=== PATIENT | female | born 1940 | race Caucasian/White ===

== ENCOUNTER 2020-01-19 09:55 | Outpatient (CLI) | payer MEDICARE, OTHER, SELFPAY ==
[2020-01-19 10:19] LABS: Basophils # 0.2 10^3/uL (0.0-0.1); Basophils % 1.6 %; Eosinophils # 0.2 10^3/uL (0.0-0.8); Hematocrit 41.8 % (37.0-47.0); Hemoglobin 12.8 g/dL (11.5-15.3); Lymphocytes # 2.3 10^3/uL (0.8-4.8); Lymphocytes % 23.2 %; Mean Corpuscular HGB Conc 30.6 g/dL (30.0-36.0); Mean Corpuscular Hemoglobin 31.5 pg (28.0-34.0); Mean Platelet Volume 11.1 fL (7.4-10.4); Monocytes # 0.7 10^3/uL (0.2-0.9); Monocytes % 7.2 %; Neutrophils # 6.4 10^3/uL (1.8-7.7); Nucleated Red Blood Cells % 0 %; Platelet Count 621 10^3/cmm (130-400); Red Blood Count 4.06 10^6/uL (4.1-5.3); Red Cell Distribution Width 13.6 % (12.1-15.1); White Blood Count 9.8 10^3/uL (4.0-10.0)
[2020-01-19 10:40] LABS: Alanine Aminotransferase 23 U/L (0-33); Albumin Level 4.5 g/dL (3.5-5.2); Alkaline Phosphatase 51 IU/L (35-105); Anion Gap 15.9 (5-19); Aspartate Amino Transferase 29 U/L (0-32); Blood Urea Nitrogen 17 mg/dL (8-23); Carbon Dioxide 27 mmol/L (22-29); Chloride 100 mmol/L (98-107); Globulin 2.7 g/dL (1.3-4.6); Glucose 128 mg/dL (65-115); Lactate Dehydrogenase 258 U/L (135-214); Osmolality Calculated 286 mOsm/kg (285-295); Potassium 3.9 mmol/L (3.5-5.1); Sodium 139 mmol/L (136-145); Total Bilirubin 0.4 mg/dL (0.15-1.2); Total Protein 7.2 g/dL (6.6-8.7)
--- NOTE | 2020-01-22 10:17 | ONC FU_ITS ---
Dr. Frost Patient Follow-Up Note Patient: Nhi Handley Unit #: [id number]: 1940 Dicatated By: Irving Frost M.D.Date of Visit:Jan 19, 2020 Onc Med Follow-up/Prog Note Chief Complaint: Thrombocythemia. History of Present Illness: This is a 79 year-old woman with essential thrombocythemia. The thrombocythemia was initially diagnosed in September 2004. She had previously been treated with hydroxyurea, and she was doing very well with it. However, I did opt to have her stop treatment in June of 2011 as there was increasing evidence that treatment was unnecessary in the majority of these patients. Since stopping treatment, her platelet count initially stabilized in the range of 900,000, which she tolerated very well. In January 2014 she had developed melanotic stools which were confirmed to be heme-positive. She was mildly anemic at that time. She had been taking Aleve, and it was discontinued along with her aspirin. She otherwise was just treated empirically with ranitidine and an oral iron supplement. Her hemoglobin/hematocrit levels subsequently normalized and, interestingly, her platelet count came down somewhat. She did develop significant erythromelalgia symptoms, but those did resolve when she resumed low-dose aspirin therapy. She has otherwise just continued observation/expectant management for the thrombocythemia. Her other medical illnesses include hypertension, hyperlipidemia, degenerative arthritis, and osteoporosis. During followup she developed symptoms of asthma, and she is under the care of a wire tinner. She is a nonsmoker. INTERIM HISTORY: She is seen for a scheduled visit. She has been feeling good generally. She has good energy, and she has had normal activity. ECOG score is 0. Her appetite is good. She has no fever or night sweats. She does have some sinus drainage with occasional cough. She does not complain of shortness of breath or chest pain. She has no GI or complaints. She currently is not having any significant joint or bone pain. She does not have headache or dizziness, and she has no focal neurologic symptoms. Medications: ALPRAZolam 0.5 (0.25 mg) Tablet Oral daily PRN, Aspirin 1 Tablet (of 81 mg) Tablet, chewable Oral daily, Flonase Suspension Nasal PRN, Montelukast Sodium 1 Tablet (of 10 mg) Oral daily PRN, Multiple Vitamin Take 1 Tablet Oral daily, Naproxen Sodium 1 Tablet (of 220 mg) Oral PRN Allergies: No Known Allergies. Review of Systems: Constitutional - Her energy has been good. She has normal activity at home. Her appetite is good and weight is down about 5 pounds from last visit. No fever, chills, hot flashes, or night sweats. ECOG score is 0, ENMT - She has some sinus drainage. No mouth sores. No sore throat or difficulty swallowing, Hematologic/Lymphatic - No abnormal bruising or bleeding, Respiratory - No shortness of breath. She has an occasional cough. No pleuritic pain or hemoptysis, Cardiovascular - No angina pain. No palpitations, Gastrointestinal - No nausea or vomiting. No heartburn or acid reflux. No diarrhea or constipation. No blood in the stool or black stools, Genitourinary (F) - No dysuria or hematuria. No urinary frequency. No urgency or incontinence, Musculoskeletal - No joint or bone pain, Integumentary - No skin complications, Neurologic - No headache or dizziness. No numbness/paresthesias or other focal neurologic symptoms, Psychiatric - She has had some anxiety, but that has been pretty good lately. No depression. No insomnia. Vital Signs: Performed on Jan 19, 2020 11:30 Height - 60.00 in Weight - 139.8 lbs (LOW) BSA - 1.60 sq.m BMI - 27.30 Temperature - 97.2 F (LOW) Pulse - 79 /min Respiration - 22 /min BP - 183/78 mm(hg) (HIGH) O2 Sat - 98 % Pain - 0 Physical Examination: Constitutional - She looks good generally, Eyes - Sclerae nonicteric. Conjunctivae clear, ENMT - No lesions noted in the oral cavity, Hematologic/Lymphatic - No cervical, clavicular, or axillary adenopathy, Respiratory - Lungs sound clear, Cardiovascular - Heart rhythm is regular. There is a II/ systolic murmur. There is no gallop or rub noted, Abdomen - Soft. Liver and spleen are not enlarged. There is no abdominal mass or ascites noted and there is no inguinal adenopathy, Extremities - Slight edema, Neurologic - No focal neurologic deficits noted. Lab/Imaging: Test performed on Jan 19, 2020 10:08 LDH (Total) 258 U/L Sodium 139 mmol/L Potassium 3.9 mmol/L Chloride 100 mmol/L CO2 27 mmol/L Anion Gap 15.9 BUN 17 mg/dL Creatinine 0.7 mg/dL Cr Clearance (Est) 65.24 mL/min Glucose 128 mg/dL Calcium 10.0 mg/dL Protein, Total 7.2 g/dL Albumin 4.5 g/dL Globulin 2.7 g/dL Bilirubin, Total 0.4 mg/dL ALT (SGPT) 23 U/L AST (SGOT) 29 U/L Alkaline Phosphatase 51 IU/L WBC 9.8 10 3/uL RBC 4.06 10 6/uL HGB 12.8 g/dL HCT 41.8 % MCV 103.0 fL MCH 31.5 pg MCHC 30.6 g/dL RDW 13.6 % Platelet Count 621 10 3/cmm MPV 11.1 fL Neutrophils 6.4 10 3/uL Lymphocytes 2.3 10 3/uL Monocytes 0.7 10 3/uL Eosinophils 0.2 10 3/uL Basophils 0.2 10 3/uL Neutrophil % 65.0 % Lymphocyte % 23.2 % Monocyte % 7.2 % Eosinophil % 2.0 % Basophils % 1.6 % Impression: 1. Patient with essential thrombocythemia, initially diagnosed in September 2004. She was previously treated with hydroxyurea, but I did opt to have her stop it in June 2011. 2. She had subsequently been doing well on just aspirin prophylaxis. 3. She had an episode of upper GI bleeding in January 2014. This was presumed to be NSAID related. She recovered on empiric treatment with ranitidine and iron supplementation, though at the time she also stopped Aleve and aspirin. 4. She subsequently developed symptoms of erythromelalgia, but those symptoms improved after restarting aspirin. 5. Her platelet count has subsequently stabilized in the range of 600-700,000. She has tolerated it well. Her other medical illnesses include: 6. Hypertension. 7. Hyperlipidemia. 8. Osteoporosis. 9. Degenerative arthritis. 10. Chronic anxiety. During follow-up she has a mild to moderately elevated platelet count, which she has tolerated well. Overall, she has been doing very well clinically. Plan: She will continue aspirin prophylaxis at 81 mg daily, but she otherwise remains on observation for the thrombocythemia. She continues alprazolam as needed for anxiety. I will see her again in 6 months. Signed By: Irving Frost M.D. <<Signature on File>>
== END 2020-01-19 09:56 | disposition home or self-care (01) ==
LOC: ONCMED 09:59
PROVIDERS: Family Provider Internal Medicine; PCP Internal Medicine; Visit Provider Internal Medicine Medical Oncology
DX: Z09 Encounter for follow-up examination after completed treatment for conditions other than malignant neoplasm (principal); D47.3 Essential (hemorrhagic) thrombocythemia; I10 Essential (primary) hypertension; E78.5 Hyperlipidemia, unspecified; M19.90 Unspecified osteoarthritis, unspecified site; M81.0 Age-related osteoporosis without current pathological fracture; J45.909 Unspecified asthma, uncomplicated; Z79.82 Long term (current) use of aspirin; Z79.899 Other long term (current) drug therapy
CPT/HCPCS: 36415; 80053; 83615; 85025; G0463

== ENCOUNTER → 2020-04-18 14:14 | Outpatient (BNVA) | payer MEDICARE, OTHER, SELFPAY | PROVIDERS: Family Provider Internal Medicine; PCP Internal Medicine; Visit Provider Podiatrist Foot & Ankle Surgery | DX: M79.671 Pain in right foot (principal); M79.672 Pain in left foot; M25.572 Pain in left ankle and joints of left foot; G89.29 Other chronic pain | CPT/HCPCS: 73630 ==

== ENCOUNTER 2020-05-11 08:17 | Outpatient (CLI) | payer MEDICARE, OTHER, SELFPAY ==
--- NOTE | 2020-05-11 08:35 | MM_ITS ---
WS: [id number] BILATERAL DIGITAL SCREENING MAMMOGRAPHY WITH CAD CLINICAL INFORMATION: SCREENING HISTORY: Screening mammogram. No current complaints. COMPARISON: April 13, 2019 TECHNIQUE: Bilateral CC and MLO views. FINDINGS: Scattered fibroglandular densities bilaterally. No suspicious focal mass, asymmetry, calcifications, or architectural distortion. No evidence of malignancy. Lucent centered calcification left breast. MM/[id number] IMPRESSION: BI-RADS: 2-Benign FOLLOW UP: 1 Year Follow-up Recommend return to annual screening mammography.
== END 2020-05-11 08:18 | disposition home or self-care (01) ==
LOC: RADSHAW 08:22
PROVIDERS: PCP Internal Medicine; Visit Provider Internal Medicine
DX: Z12.31 Encounter for screening mammogram for malignant neoplasm of breast (principal)
CPT/HCPCS: 77067

== ENCOUNTER → 2020-05-15 08:53 | Outpatient (BNVA) | payer MEDICARE, OTHER, SELFPAY | PROVIDERS: PCP Internal Medicine; Visit Provider Dermatology | DX: Z85.828 Personal history of other malignant neoplasm of skin (principal); Z85.89 Personal history of malignant neoplasm of other organs and systems; Z12.83 Encounter for screening for malignant neoplasm of skin; L82.1 Other seborrheic keratosis; D36.10 Benign neoplasm of peripheral nerves and autonomic nervous system, unspecified; B07.9 Viral wart, unspecified | CPT/HCPCS: 17000; 99203 ==

== ENCOUNTER 2020-07-19 11:23 | Outpatient (CLI) | payer MEDICARE, OTHER, SELFPAY ==
[2020-07-19 12:10] LABS: Basophils # 0.2 10^3/uL (0.0-0.1); Basophils % 1.8 %; Eosinophils # 0.3 10^3/uL (0.0-0.8); Eosinophils % 2.7 %; Hematocrit 42.4 % (37.0-47.0); Hemoglobin 13.4 g/dL (11.5-15.3); Lymphocytes # 2.4 10^3/uL (0.8-4.8); Lymphocytes % 22.6 %; Mean Corpuscular HGB Conc 31.6 g/dL (30.0-36.0); Mean Corpuscular Hemoglobin 31.5 pg (28.0-34.0); Mean Corpuscular Volume 99.8 fL (81-99); Monocytes # 0.7 10^3/uL (0.2-0.9); Monocytes % 7.1 %; Neutrophils # 6.76 10^3/uL (1.8-7.7); Neutrophils % 64.6 %; Nucleated Red Blood Cells % 0 %; Platelet Count 694 10^3/cmm (130-400); Red Blood Count 4.25 10^6/uL (4.1-5.3); Red Cell Distribution Width 13.3 % (12.1-15.1); White Blood Count 10.5 10^3/uL (4.0-10.0)
[2020-07-19 12:36] LABS: Alanine Aminotransferase 21 U/L (0-33); Albumin Level 4.3 g/dL (3.5-5.2); Alkaline Phosphatase 48 IU/L (35-105); Anion Gap 16.4 (5-19); Aspartate Amino Transferase 29 U/L (0-32); Blood Urea Nitrogen 17 mg/dL (8-23); Calcium 9.5 mg/dL (8.5-10.5); Carbon Dioxide 27 mmol/L (22-29); Chloride 100 mmol/L (98-107); Glucose 105 mg/dL (65-115); Lactate Dehydrogenase 299 U/L (135-214); Osmolality Calculated 290 mOsm/kg (285-295); Potassium 4.4 mmol/L (3.5-5.1); Sodium 139 mmol/L (136-145); Total Bilirubin 0.3 mg/dL (0.15-1.2); Total Protein 7.3 g/dL (6.6-8.7)
--- NOTE | 2020-07-22 13:45 | ONC FU_ITS ---
Dr. Frost Patient Follow-Up Note Patient: Nhi Handley Unit #: [id number]: [id number] Dicatated By: Irving Frost M.D.Date of Visit:Jul 19, 2020 Onc Med Follow-up/Prog Note Chief Complaint: Thrombocythemia. History of Present Illness: This is a 79 year-old woman with essential thrombocythemia. The thrombocythemia was initially diagnosed in September 2004. She had previously been treated with hydroxyurea, and she was doing very well with it. However, I did opt to have her stop treatment in June of 2011 as there was increasing evidence that treatment was unnecessary in the majority of these patients. Since stopping treatment, her platelet count initially stabilized in the range of 900,000, which she tolerated very well. In January 2014 she had developed melanotic stools which were confirmed to be heme-positive. She was mildly anemic at that time. She had been taking Aleve, and it was discontinued along with her aspirin. She otherwise was just treated empirically with ranitidine and an oral iron supplement. Her hemoglobin/hematocrit levels subsequently normalized and, interestingly, her platelet count came down somewhat. She did develop significant erythromelalgia symptoms, but those did resolve when she resumed low-dose aspirin therapy. She has otherwise just continued observation/expectant management for the thrombocythemia. Her other medical illnesses include hypertension, hyperlipidemia, degenerative arthritis, and osteoporosis. During followup she developed symptoms of asthma, and she is under the care of a buffing turner and counter. She is a nonsmoker. INTERIM HISTORY: She is seen for a scheduled visit. She has been feeling pretty good generally. Her energy has been okay, but she does have limited activity. ECOG score is 1. She has good appetite. She has no fever or night sweats. She always has sinus drainage. She currently is not having shortness of breath and she does not complain of cough. She has not had chest pain. She has no GI or complaints. She has been having pain in her left ankle and foot, reportedly due to a bone spur. She otherwise has some mild generalized joint pain. She does not complain of headache or dizziness. She has no focal neurologic symptoms. She does have anxiety at times, but she manages it very well taking alprazolam on an occasional basis. Medications: ALPRAZolam 0.5 (0.25 mg) Tablet Oral daily PRN, Aspirin 1 Tablet (of 81 mg) Tablet, chewable Oral daily, Flonase Suspension Nasal PRN, Lipitor 1 Tablet (of 10 mg) Oral on Every Other Day, Multiple Vitamin Take 1 Tablet Oral daily, Naproxen Sodium 1 Tablet (of 220 mg) Oral PRN Allergies: penicillin Review of Systems: Constitutional - Her energy is OK, but she does have somewhat limited activity. Appetite is good and weight is stable. No fever, night sweats, or hot flashes. ECOG score is 1, ENMT - She always has sinus drainage. No mouth sores. No sore throat or difficulty swallowing, Hematologic/Lymphatic - No abnormal bruising or bleeding, Respiratory - No shortness of breath. No cough. No pleuritic pain or hemoptysis, Cardiovascular - No angina pain. No palpitations, Gastrointestinal - No nausea or vomiting. No heartburn or acid reflux. No diarrhea or constipation. No blood in the stool or black stools, Genitourinary (F) - No dysuria or hematuria. No urinary frequency. No urgency or incontinence, Musculoskeletal - She has been having pain in her left ankle and foot, apparently due to bone spur. She otherwise has some mild generalized joint pain, Integumentary - No skin rash, Neurologic - No headache or dizziness. No numbness or tingling. No other focal neurologic symptoms, Psychiatric - She has some anxiety at times. She manages very well taking alprazolam on an occasional basis. No depression. No insomnia. Vital Signs: Performed on Jul 19, 2020 12:56 Height - 60.00 in Weight - 137.0 lbs (LOW) BSA - 1.59 sq.m BMI - 26.76 Temperature - 97.6 F (LOW) Pulse - 56 /min (LOW) Respiration - 18 /min BP - 136/72 mm(hg) O2 Sat - 98 % Pain - 0 Physical Examination: Constitutional - She looks good generally, Eyes - Sclerae nonicteric. Conjunctivae clear, ENMT - No lesions noted in the oral cavity, Hematologic/Lymphatic - No cervical, clavicular, or axillary adenopathy, Respiratory - Lungs sound clear with slightly diminished breath sounds bilaterally, Cardiovascular - Heart rhythm is regular. There is a II/ systolic murmur. There is no gallop or rub noted, Abdomen - Soft. Liver and spleen are not enlarged. There is no abdominal mass or ascites noted and there is no inguinal adenopathy, Extremities - No edema. Dorsalis pedis pulses are palpable bilaterally, Neurologic - No focal neurologic deficits noted. Lab/Imaging: Test performed on Jul 19, 2020 11:34 LDH (Total) 299 U/L Sodium 139 mmol/L Potassium 4.4 mmol/L Chloride 100 mmol/L CO2 27 mmol/L Anion Gap 16.4 BUN 17 mg/dL Creatinine 0.7 mg/dL Cr Clearance (Est) 63.93 mL/min Glucose 105 mg/dL Osmolality - Calculated 290 mOsm/kg Calcium 9.5 mg/dL Protein, Total 7.3 g/dL Albumin 4.3 g/dL Globulin 3.0 g/dL Bilirubin, Total 0.3 mg/dL ALT (SGPT) 21 U/L AST (SGOT) 29 U/L Alkaline Phosphatase 48 IU/L WBC 10.5 10 3/uL RBC 4.25 10 6/uL HGB 13.4 g/dL HCT 42.4 % MCV 99.8 fL MCH 31.5 pg MCHC 31.6 g/dL RDW 13.3 % Platelet Count 694 10 3/cmm MPV 11.0 fL Neutrophils 6.76 10 3/uL Lymphocytes 2.4 10 3/uL Monocytes 0.7 10 3/uL Eosinophils 0.3 10 3/uL Basophils 0.2 10 3/uL Neutrophil % 64.6 % Lymphocyte % 22.6 % Monocyte % 7.1 % Eosinophil % 2.7 % Basophils % 1.8 % NRBC % 0 % Impression: 1. Patient with essential thrombocythemia, initially diagnosed in September 2004. She was previously treated with hydroxyurea, but I did opt to have her stop it in June 2011. 2. She had subsequently been doing well on just aspirin prophylaxis. 3. She had an episode of upper GI bleeding in January 2014. This was presumed to be NSAID related. She recovered on empiric treatment with ranitidine and iron supplementation, though at the time she also stopped Aleve and aspirin. 4. She subsequently developed symptoms of erythromelalgia, but those symptoms improved after restarting aspirin. 5. Her platelet count has subsequently stabilized in the range of 600-700,000. She has tolerated it well. Her other medical illnesses include: 6. Hypertension. 7. Hyperlipidemia. 8. Osteoporosis. 9. Degenerative arthritis. 10. Chronic anxiety. During follow-up she has a mild to moderately elevated platelet count, which she has tolerated well. Overall, she has been doing very well clinically. Plan: She will continue aspirin prophylaxis at 81 mg daily. She otherwise remains on observation for the thrombocythemia. She will continue alprazolam as needed for anxiety. I will see her again in 6 months. Signed By: Irving Frost M.D. <<Signature on File>>
== END 2020-07-19 11:24 | disposition home or self-care (01) ==
LOC: ONCMED 11:29
PROVIDERS: PCP Internal Medicine; Visit Provider Internal Medicine Medical Oncology
DX: D47.3 Essential (hemorrhagic) thrombocythemia (principal); I10 Essential (primary) hypertension; E78.5 Hyperlipidemia, unspecified; M81.0 Age-related osteoporosis without current pathological fracture; M19.90 Unspecified osteoarthritis, unspecified site; F41.9 Anxiety disorder, unspecified
CPT/HCPCS: 80053; 83615; 85025; 99214

== ENCOUNTER 2021-01-18 13:40 | Outpatient (CLI) | payer MEDICARE, OTHER, SELFPAY ==
[2021-01-18 14:48] LABS: Basophils # 0.3 10^3/uL (0.0-0.1); Basophils % 2.2 %; Eosinophils # 0.2 10^3/uL (0.0-0.8); Eosinophils % 1.4 %; Hematocrit 41.8 % (37.0-47.0); Hemoglobin 13.4 g/dL (11.5-15.3); Lymphocytes # 2.8 10^3/uL (0.8-4.8); Lymphocytes % 23.2 %; Mean Corpuscular HGB Conc 32.1 g/dL (30.0-36.0); Mean Corpuscular Hemoglobin 32.1 pg (28.0-34.0); Monocytes # 0.9 10^3/uL (0.2-0.9); Monocytes % 7.7 %; Neutrophils # 7.89 10^3/uL (1.8-7.7); Neutrophils % 64.4 %; Nucleated Red Blood Cells % 0 %; Platelet Count 852 10^3/cmm (130-400); Red Blood Count 4.18 10^6/uL (4.1-5.3); Red Cell Distribution Width 13.3 % (12.1-15.1); White Blood Count 12.2 10^3/uL (4.0-10.0)
[2021-01-18 15:08] LABS: Alanine Aminotransferase 17 U/L (0-33); Albumin Level 4.6 g/dL (3.5-5.2); Alkaline Phosphatase 52 IU/L (35-105); Anion Gap 13.9 (5-19); Aspartate Amino Transferase 26 U/L (0-32); Blood Urea Nitrogen 14 mg/dL (8-23); Calcium 9.6 mg/dL (8.5-10.5); Carbon Dioxide 28 mmol/L (22-29); Chloride 101 mmol/L (98-107); Globulin 2.8 g/dL (1.3-4.6); Glucose 100 mg/dL (65-115); Lactate Dehydrogenase 310 U/L (135-214); Osmolality Calculated 289 mOsm/kg (285-295); Potassium 3.9 mmol/L (3.5-5.1); Sodium 139 mmol/L (136-145); Total Bilirubin 0.4 mg/dL (0.15-1.2); Total Protein 7.4 g/dL (6.6-8.7)
--- NOTE | 2021-01-22 11:01 | ONC FU_ITS ---
Dr. Frost Patient Follow-Up Note Patient: Nhi Handley Unit #: [id number]: 1940 Dicatated By: Irving Frost M.D.Date of Visit:Jan 18, 2021 Onc Med Follow-up/Prog Note Chief Complaint: Thrombocythemia. History of Present Illness: This is an 80 year-old woman with essential thrombocythemia. The thrombocythemia was initially diagnosed in September 2004. She had previously been treated with hydroxyurea, and she was doing very well with it. However, I did opt to have her stop treatment in June of 2011 as there was increasing evidence that treatment was unnecessary in the majority of these patients. Since stopping treatment, her platelet count initially stabilized in the range of 900,000, which she tolerated very well. In January 2014 she had developed melanotic stools which were confirmed to be heme-positive. She was mildly anemic at that time. She had been taking Aleve, and it was discontinued along with her aspirin. She otherwise was just treated empirically with ranitidine and an oral iron supplement. Her hemoglobin/hematocrit levels subsequently normalized and, interestingly, her platelet count came down somewhat. She did develop significant erythromelalgia symptoms, but those did resolve when she resumed low-dose aspirin therapy. She has otherwise just continued observation/expectant management for the thrombocythemia. Her other medical illnesses include hypertension, hyperlipidemia, degenerative arthritis, and osteoporosis. During followup she developed symptoms of asthma, and she is under the care of a factory maintenance manager. She is a nonsmoker. INTERIM HISTORY: She is seen for a scheduled visit. Her main complaint is that last fall she had an episode of hives, severe enough that her jaws clamped tight with it. She says she has had very occasional episodes dating back some 40 years or so. The episode resolved uneventfully, but she then did see Dr. Willis for allergy testing, and she was found to have a significantly elevated IgE antibody titer to galactose alpha-1, 3-galactose at 6.66, normal being <0.10, consistent with red meat allergy. She has otherwise been feeling good. She has good energy and activity tolerance. ECOG score is 0. Her appetite is good. She has no fever or night sweats. She has some sinus drainage and in the morning she tends to have some cough with it. She has no shortness of breath or chest pain. She occasionally has a little bit of heartburn. She has no other GI or complaints. Her arthritis has been pretty good. She does complain that her knee squeaks and she has a little pain in her left ankle. She does not complain of headache or dizziness. She has no focal neurologic symptoms. Medications: ALPRAZolam 0.5 (0.25 mg) Tablet Oral daily PRN, Aspirin 1 Tablet (of 81 mg) Tablet, chewable Oral daily, Flonase Suspension Nasal PRN, Lipitor 1 Tablet (of 10 mg) Oral on Every Other Day, Multiple Vitamin Take 1 Tablet Oral daily, Naproxen Sodium 1 Tablet (of 220 mg) Oral PRN Allergies: penicillin Vital Signs: Performed on Jan 18, 2021 15:31 Height - 60.00 in Weight - 129.4 lbs (LOW) BSA - 1.55 sq.m BMI - 25.27 Temperature - 98.6 F Pulse - 75 /min Respiration - 18 /min BP - 158/79 mm(hg) (HIGH) O2 Sat - 97 % Pain - 0 Fatigue - 0 Physical Examination: Constitutional - She looks good generally, Eyes - Sclerae nonicteric. Conjunctivae clear, ENMT - No lesions noted in the oral cavity, Hematologic/Lymphatic - No cervical, clavicular, or axillary adenopathy, Respiratory - Lungs sound clear, Cardiovascular - Heart rhythm is regular. There is a II/ systolic murmur. There is no gallop or rub noted, Abdomen - Soft. Liver and spleen are not enlarged. There is no abdominal mass or ascites noted and there is no inguinal adenopathy, Extremities - No edema, Neurologic - No focal neurologic deficits noted. Lab/Imaging: Test performed on Jan 18, 2021 13:58 LDH (Total) 310 U/L Sodium 139 mmol/L Potassium 3.9 mmol/L Chloride 101 mmol/L CO2 28 mmol/L Anion Gap 13.9 BUN 14 mg/dL Creatinine 0.7 mg/dL Cr Clearance (Est) 59.39 mL/min Glucose 100 mg/dL Osmolality - Calculated 289 mOsm/kg Calcium 9.6 mg/dL Protein, Total 7.4 g/dL Albumin 4.6 g/dL Globulin 2.8 g/dL Bilirubin, Total 0.4 mg/dL ALT (SGPT) 17 U/L AST (SGOT) 26 U/L Alkaline Phosphatase 52 IU/L WBC 12.2 10 3/uL RBC 4.18 10 6/uL HGB 13.4 g/dL HCT 41.8 % MCV 100.0 fL MCH 32.1 pg MCHC 32.1 g/dL RDW 13.3 % Platelet Count 852 10 3/cmm MPV 11.0 fL Neutrophils 7.89 10 3/uL Lymphocytes 2.8 10 3/uL Monocytes 0.9 10 3/uL Eosinophils 0.2 10 3/uL Basophils 0.3 10 3/uL Neutrophil % 64.4 % Lymphocyte % 23.2 % Monocyte % 7.7 % Eosinophil % 1.4 % Basophils % 2.2 % NRBC % 0 % Problem List: 1. Patient with essential thrombocythemia, initially diagnosed in September 2004. She was previously treated with hydroxyurea, but I did opt to have her stop it in June 2011. 2. She had an episode of upper GI bleeding in January 2014, presumed to be NSAID related. 3. Hypertension. 4. Hyperlipidemia. 5. Osteoporosis. 6. Degenerative arthritis. 7. Chronic anxiety. 8. 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 Problems Addressed with this Encounter and Plan: 1. Patient with essential thrombocythemia, initially diagnosed in September 2004. She was previously treated with hydroxyurea, but I did opt to have her stop it in June 2011. She initially had been doing well on just aspirin prophylaxis. It was stopped following an episode of upper GI bleeding in January 2014, presumed to be NSAID related. At the time she also had been taking Aleve, which she also stopped. She had subsequently developed symptoms of erythromelalgia, but those symptoms improved after restarting aspirin. During followup her platelet counts have generally been stable in the range of 600-700,000, which she tolerates well. Her overall clinical status has been stable. She will continue aspirin prophylaxis at 81 mg daily. She otherwise remains on observation for the thrombocythemia. I will see her again in 6 months. 2. She has chronic anxiety. It has been managed very well with alprazolam, which she takes only as needed. Signed By: Irving Frost M.D. <<Signature on File>>
== END 2021-01-18 13:41 | disposition home or self-care (01) ==
LOC: ONCMED 13:44
PROVIDERS: PCP Internal Medicine; Visit Provider Internal Medicine Medical Oncology
DX: D47.3 Essential (hemorrhagic) thrombocythemia (principal); I10 Essential (primary) hypertension; E78.5 Hyperlipidemia, unspecified; M81.0 Age-related osteoporosis without current pathological fracture; F41.9 Anxiety disorder, unspecified; L50.9 Urticaria, unspecified; E00-E89 Endocrine, nutritional and metabolic diseases; Z79.899 Other long term (current) drug therapy
CPT/HCPCS: 36415; 80053; 83615; 85025; 99214

== ENCOUNTER 2021-08-06 11:45 | Outpatient (CLI) | payer MEDICARE, OTHER, SELFPAY ==
[2021-08-06 12:30] LABS: Basophils # 0.2 10^3/uL (0.0-0.1); Basophils % 2.1 %; Eosinophils # 0.2 10^3/uL (0.0-0.8); Eosinophils % 1.8 %; Hematocrit 40.4 % (37.0-47.0); Hemoglobin 12.9 g/dL (11.5-15.3); Lymphocytes # 2.3 10^3/uL (0.8-4.8); Lymphocytes % 22.9 %; Mean Corpuscular HGB Conc 31.9 g/dL (30.0-36.0); Mean Corpuscular Hemoglobin 32.1 pg (28.0-34.0); Mean Corpuscular Volume 100.5 fl (81-99); Mean Platelet Volume 10.7 fL (7.4-10.4); Monocytes # 0.8 10^3/uL (0.2-0.9); Monocytes % 7.3 %; Neutrophils # 6.56 10^3/uL (1.8-7.7); Neutrophils % 64.1 %; Nucleated Red Blood Cells % 0 %; Platelet Count 760 10^3/cmm (130-400); Red Blood Count 4.02 10^6/uL (4.1-5.3); Red Cell Distribution Width 13.7 % (12.1-15.1); White Blood Count 10.2 10^3/uL (4.0-10.0)
[2021-08-06 13:02] LABS: Alanine Aminotransferase 22 U/L (0-33); Albumin Level 4.1 g/dL (3.5-5.2); Alkaline Phosphatase 52 IU/L (35-105); Anion Gap 11.9 (5-19); Aspartate Amino Transferase 27 U/L (0-32); Blood Urea Nitrogen 12 mg/dL (8-23); Carbon Dioxide 27 mmol/L (22-29); Chloride 101 mmol/L (98-107); Globulin 2.6 g/dL (1.3-4.6); Glucose 96 mg/dL (65-115); Lactate Dehydrogenase 286 U/L (135-214); Osmolality Calculated 282 mOsm/kg (285-295); Potassium 3.9 mmol/L (3.5-5.1); Sodium 136 mmol/L (136-145); Total Bilirubin 0.3 mg/dL (0.15-1.2); Total Protein 6.7 g/dL (6.6-8.7)
--- NOTE | 2021-08-06 17:48 | ONC FU_ITS ---
Dr. Frost Patient Follow-Up Note Patient: Nhi Handley Unit #: [id number]: 1940 Dicatated By: Irving Frost M.D.Date of Visit:Aug 06, 2021 Onc Med Follow-up/Prog Note Chief Complaint: Thrombocythemia. History of Present Illness: This is an 80 year-old woman with essential thrombocythemia. The thrombocythemia was initially diagnosed in September 2004. She had previously been treated with hydroxyurea, and she was doing very well with it. However, I did opt to have her stop treatment in June of 2011 as there was increasing evidence that treatment was unnecessary in the majority of these patients. Since stopping treatment, her platelet count initially stabilized in the range of 900,000, which she tolerated very well. In January 2014 she had developed melanotic stools which were confirmed to be heme-positive. She was mildly anemic at that time. She had been taking Aleve, and it was discontinued along with her aspirin. She otherwise was just treated empirically with ranitidine and an oral iron supplement. Her hemoglobin/hematocrit levels subsequently normalized and, interestingly, her platelet count came down somewhat. During followup she had developed significant erythromelalgia symptoms, but those resolved when she resumed low-dose aspirin therapy. She otherwise just continued observation/expectant management for the thrombocythemia. Her other medical illnesses include hypertension, hyperlipidemia, degenerative arthritis, and osteoporosis. During followup she developed symptoms of asthma, and she is under the care of a trader fixed income. She is a nonsmoker. INTERIM HISTORY: She is seen for a followup visit. She has been feeling good generally. She has pretty good energy/activity tolerance. ECOG score is 1. She has good appetite. She has no fever or night sweats. She has some sinus drainage, but not as much since she started using Flonase regularly. Recently she has had some soreness in her right lower gum. She has otherwise not had sore mouth or throat. Her cough has improved with the Flonase. She does not complain of shortness of breath or chest pain. She has no GI or complaints. She has some joint pain, but she does get some benefit with Voltaren gel. She does not complain of headache. She sometimes has dizziness. She has no numbness/paresthesia or other focal neurologic symptoms. She does not have abnormal bruising or bleeding. Medications: ALPRAZolam 0.5 (0.25 mg) Tablet Oral daily PRN, Aspirin 1 Tablet (of 81 mg) Tablet, chewable Oral daily, Flonase Suspension Nasal PRN, Lipitor 1 Tablet (of 10 mg) Oral on Every Other Day, Multiple Vitamin Take 1 Tablet Oral daily, Naproxen Sodium 1 Tablet (of 220 mg) Oral PRN Allergies: penicillin Vital Signs: Performed on Aug 06, 2021 15:22 Height - 60.00 in Weight - 124.8 lbs (LOW) BSA - 1.53 sq.m BMI - 24.37 Temperature - 98.7 F Pulse - 79 /min Respiration - 18 /min BP - 134/72 mm(hg) O2 Sat - 96 % Pain - 0 Fatigue - 0 Physical Examination: Constitutional - She looks good generally, Eyes - Sclerae nonicteric. Conjunctivae clear, ENMT - No lesions noted in the oral cavity, Hematologic/Lymphatic - No cervical, clavicular, or axillary adenopathy, Respiratory - Lungs sound clear, Cardiovascular - Heart rhythm is regular. There is a II/ systolic murmur. There is no gallop or rub noted, Abdomen - Soft. Liver and spleen are not enlarged. There is no abdominal mass or ascites noted and there is no inguinal adenopathy, Extremities - Slight edema, Neurologic - No focal neurologic deficits noted. Lab/Imaging: Test performed on Aug 06, 2021 12:10 LDH (Total) 286 U/L Sodium 136 mmol/L Potassium 3.9 mmol/L Chloride 101 mmol/L CO2 27 mmol/L Anion Gap 11.9 BUN 12 mg/dL Creatinine 0.5 mg/dL Cr Clearance (Est) 80.20 mL/min Glucose 96 mg/dL Osmolality - Calculated 282 mOsm/kg Calcium 9.0 mg/dL Protein, Total 6.7 g/dL Albumin 4.1 g/dL Globulin 2.6 g/dL Bilirubin, Total 0.3 mg/dL ALT (SGPT) 22 U/L AST (SGOT) 27 U/L Alkaline Phosphatase 52 IU/L WBC 10.2 10 3/uL RBC 4.02 10 6/uL HGB 12.9 g/dL HCT 40.4 % MCV 100.5 fl MCH 32.1 pg MCHC 31.9 g/dL RDW 13.7 % Platelet Count 760 10 3/cmm MPV 10.7 fL Neutrophils 6.56 10 3/uL Lymphocytes 2.3 10 3/uL Monocytes 0.8 10 3/uL Eosinophils 0.2 10 3/uL Basophils 0.2 10 3/uL Neutrophil % 64.1 % Lymphocyte % 22.9 % Monocyte % 7.3 % Eosinophil % 1.8 % Basophils % 2.1 % NRBC % 0 % Problem List: 1. Patient with essential thrombocythemia, initially diagnosed in September 2004. She was previously treated with hydroxyurea, but I did opt to have her stop it in June 2011. 2. She had an episode of upper GI bleeding in January 2014, presumed to be NSAID related. 3. Hypertension. 4. Hyperlipidemia. 5. Osteoporosis. 6. Degenerative arthritis. 7. Chronic anxiety. 8. 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 Problems Addressed with this Encounter and Plan: 1. Patient with essential thrombocythemia, initially diagnosed in September 2004. She was previously treated with hydroxyurea, but I did opt to have her stop it in June 2011. She initially had been doing well on just aspirin prophylaxis. It was stopped following an episode of upper GI bleeding in January 2014, presumed to be NSAID related. At the time she also had been taking Aleve, which she also stopped. She had subsequently developed symptoms of erythromelalgia, but those symptoms improved after restarting aspirin. During followup her platelet counts have generally been stable in the range of 600-700,000, which she tolerates well. Her overall clinical status has been stable. She will continue aspirin prophylaxis at 81 mg daily. She otherwise remains on observation for the thrombocythemia. I will see her again in 6 months. 2. She has chronic anxiety. It has been managed very well with alprazolam, which she takes only as needed. Signed By: Irving Frost M.D. <<Signature on File>>
== END 2021-08-06 11:46 | disposition home or self-care (01) ==
LOC: ONCMED 11:48
PROVIDERS: PCP Internal Medicine; Visit Provider Internal Medicine Medical Oncology
DX: D47.3 Essential (hemorrhagic) thrombocythemia (principal); I10 Essential (primary) hypertension; E78.5 Hyperlipidemia, unspecified; M81.0 Age-related osteoporosis without current pathological fracture; M19.90 Unspecified osteoarthritis, unspecified site; F41.9 Anxiety disorder, unspecified; Z79.899 Other long term (current) drug therapy
CPT/HCPCS: 36415; 80053; 83615; 85025; 99214

== ENCOUNTER 2021-08-08 12:29 | Outpatient (CLI) | payer MEDICARE, OTHER, SELFPAY ==
--- NOTE | 2021-08-08 13:01 | MM_ITS ---
WS: [id number] SCREENING DIGITAL MAMMOGRAM WITH CAD HISTORY: SCREENING COMPARISON: 05/11/2020 04/13/2019 and 03/25/2016 Bilateral CC and MLO views submitted. Computer aided detection analyzed. Breast composition: There are scattered areas of fibroglandular density. No suspicious masses, microc alcifications or architectural distortion. Benign calcification in the central LEFT breast. MM/[id number] IMPRESSION: BI-RADS: 2-Benign FOLLOW UP: 1 Year Follow-up
== END 2021-08-08 12:30 | disposition home or self-care (01) ==
LOC: RADSHAW 12:33
PROVIDERS: PCP Internal Medicine; Visit Provider Internal Medicine
DX: Z12.31 Encounter for screening mammogram for malignant neoplasm of breast (principal)
CPT/HCPCS: 77067

== ENCOUNTER 2022-02-08 10:16 | Outpatient (CLI) | payer MEDICARE, OTHER, SELFPAY ==
[2022-02-08 10:46] LABS: Basophils # 0.5 10^3/uL (0.0-0.1); Basophils % 3.6 %; Eosinophils # 0.3 10^3/uL (0.0-0.8); Eosinophils % 2.4 %; Hematocrit 41.2 % (37.0-47.0); Hemoglobin 13.2 g/dL (11.5-15.3); Lymphocytes # 2.9 10^3/uL (0.8-4.8); Lymphocytes % 21.7 %; Mean Corpuscular Hemoglobin 32.4 pg (28.0-34.0); Mean Platelet Volume 10.7 fL (7.4-10.4); Monocytes # 1.3 10^3/uL (0.2-0.9); Monocytes % 9.6 %; Neutrophils # 8.03 10^3/uL (1.8-7.7); Neutrophils % 59.9 %; Nucleated Red Blood Cells % 0 %; Platelet Count 859 10^3/cmm (130-400); Red Blood Count 4.08 10^6/uL (4.1-5.3); Red Cell Distribution Width 13.6 % (12.1-15.1); White Blood Count 13.4 10^3/uL (4.0-10.0)
[2022-02-08 11:13] LABS: Alanine Aminotransferase 15 U/L (0-33); Albumin Level 4.5 g/dL (3.5-5.2); Alkaline Phosphatase 60 IU/L (35-105); Aspartate Amino Transferase 26 U/L (0-32); Blood Urea Nitrogen 14 mg/dL (8-23); Calcium 9.9 mg/dL (8.5-10.5); Carbon Dioxide 28 mmol/L (22-29); Chloride 99 mmol/L (98-107); Globulin 3.1 g/dL (1.3-4.6); Glucose 104 mg/dL (65-115); Osmolality Calculated 283 mOsm/kg (285-295); Sodium 136 mmol/L (136-145); Total Bilirubin 0.4 mg/dL (0.15-1.2); Total Protein 7.6 g/dL (6.6-8.7)
[2022-02-08 11:29] LABS: Anion Gap 13.1 (5-19); Lactate Dehydrogenase 307 U/L (135-214); Potassium 4.1 mmol/L (3.5-5.1)
== END 2022-02-08 10:17 | disposition home or self-care (01) ==
LOC: LAB 10:29
PROVIDERS: PCP Internal Medicine; Visit Provider Internal Medicine Medical Oncology
DX: D75.839 Thrombocytosis, unspecified (principal)
CPT/HCPCS: 36415; 80053; 83615; 85025

== ENCOUNTER 2022-02-12 13:44 | Outpatient (CLI) | payer MEDICARE, OTHER, SELFPAY ==
--- NOTE | 2022-02-16 11:34 | ONC FU_ITS ---
Dr. Frost Patient Follow-Up Note Patient: Nhi Handley Unit #: [id number]: 1940 Dicatated By: Irving Frost M.D.Date of Visit:Feb 12, 2022 Onc Med Follow-up/Prog Note Chief Complaint: Thrombocythemia. History of Present Illness: This is an 80 year-old woman with essential thrombocythemia. The thrombocythemia was initially diagnosed in September 2004. She had previously been treated with hydroxyurea, and she was doing very well with it. However, I did opt to have her stop treatment in June of 2011 as there was increasing evidence that treatment was unnecessary in the majority of these patients. Since stopping treatment, her platelet count initially stabilized in the range of 900,000, which she tolerated very well. In January 2014 she had developed melanotic stools which were confirmed to be heme-positive. She was mildly anemic at that time. She had been taking Aleve, and it was discontinued along with her aspirin. She otherwise was just treated empirically with ranitidine and an oral iron supplement. Her hemoglobin/hematocrit levels subsequently normalized and, interestingly, her platelet count came down somewhat. During followup she had developed significant erythromelalgia symptoms, but those resolved when she resumed low-dose aspirin therapy. She otherwise just continued observation/expectant management for the thrombocythemia. Her other medical illnesses include hypertension, hyperlipidemia, degenerative arthritis, and osteoporosis. During followup she developed symptoms of asthma, and she is under the care of a eyeglass lens grinder. She is a nonsmoker. INTERIM HISTORY: She is seen for a followup visit. She has been feeling okay. She has good energy until about noon. She has pretty normal activity. ECOG score is 1. She has good appetite. She has no fever or night sweats. She has been having some sinus drainage. She has not had sore mouth or throat. She does not complain of cough, and she has not been having shortness of breath or chest pain. She has no GI or complaints. About 2 weeks ago she woke up with pain in the left shoulder which radiated down to her left hand. The pain resolved with a local injection. She had fasciitis in her right leg, that also resolved. She does not complain of headache or dizziness, and she has no focal neurologic symptoms. She has had some bruising, including a recent bruise on her upper right arm. To her knowledge it developed in the absence of any associated trauma. Medications: ALPRAZolam 0.5 (0.25 mg) Tablet Oral daily PRN, Aspirin 1 Tablet (of 81 mg) Tablet, chewable Oral daily, Flonase Suspension Nasal PRN, Lipitor 1 Tablet (of 10 mg) Oral on Every Other Day, Multiple Vitamin Take 1 Tablet Oral daily, Naproxen Sodium 1 Tablet (of 220 mg) Oral PRN Allergies: penicillin Vital Signs: Performed on Feb 12, 2022 14:16 Height - 60.00 in Weight - 128.2 lbs (HIGH) BSA - 1.55 sq.m BMI - 25.04 Temperature - 97.8 F (LOW) Pulse - 74 /min Respiration - 16 /min BP - 127/68 mm(hg) O2 Sat - 97 % Pain - 0 Fatigue - 0 Physical Examination: Constitutional - She looks good generally, Eyes - Sclerae nonicteric. Conjunctivae clear, ENMT - No lesions noted in the oral cavity, Hematologic/Lymphatic - No cervical, clavicular, or axillary adenopathy, Respiratory - Lungs sound clear, Cardiovascular - Heart rhythm is regular. There is a II/ systolic murmur. There is no gallop or rub noted, Abdomen - Soft. Liver and spleen are not enlarged. There is no abdominal mass or ascites noted and there is no inguinal adenopathy, Extremities - Slight lower extremity edema. There is a fairly large ecchymosis on the medial aspect of the upper right arm. There is a tiny subcutaneous nodule palpable at its superior aspect, Neurologic - No focal neurologic deficits noted. Lab/Imaging: CBC shows hemoglobin 13.2 g with hematocrit 41.2%. The red cell indices are slightly macrocytic. The white blood cell count is mildly elevated at 13,400. The platelet count remains moderately elevated at 859,000. Comprehensive metabolic profile shows normal renal function with BUN 14 and creatinine 0.6 mg/dL. The bilirubin and liver enzymes are normal. LDH is mildly elevated at 307/214 U/L. Problem List: 1. Patient with essential thrombocythemia, initially diagnosed in September 2004. She was previously treated with hydroxyurea, but I did opt to have her stop it in June 2011. 2. She had an episode of upper GI bleeding in January 2014, presumed to be NSAID related. 3. Hypertension. 4. Hyperlipidemia. 5. Osteoporosis. 6. Degenerative arthritis. 7. Chronic anxiety. 8. 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 Problems Addressed with this Encounter and Plan: 1. Patient with essential thrombocythemia, initially diagnosed in September 2004. She was previously treated with hydroxyurea, but I did opt to have her stop it in June 2011. She initially had been doing well on just aspirin prophylaxis. It was stopped following an episode of upper GI bleeding in January 2014, presumed to be NSAID related. At the time she also had been taking Aleve, which she also stopped. She had subsequently developed symptoms of erythromelalgia, but those symptoms improved after restarting aspirin. During followup her platelet counts have generally been stable in the range of 600-700,000, which she has tolerated well. Her overall clinical status has been stable on prophylaxis with 81 mg aspirin daily. She does have some bruising with it, but thus far it has not been excessive. As such, I will have her continue the aspirin at the same dosage. She otherwise remains on observation for the thrombocythemia. I will see her again in 6 months. 2. She has chronic anxiety. It has been managed very well with alprazolam, which she takes only as needed. Signed By: Irving Frost M.D. <<Signature on File>>
== END 2022-02-12 13:45 | disposition home or self-care (01) ==
PROVIDERS: PCP Internal Medicine; Visit Provider Internal Medicine Medical Oncology
DX: D47.3 Essential (hemorrhagic) thrombocythemia (principal); Z87.19 Personal history of other diseases of the digestive system; F41.9 Anxiety disorder, unspecified
CPT/HCPCS: 99214

== ENCOUNTER 2022-08-14 10:50 | Outpatient (CLI) | payer MEDICARE, OTHER, SELFPAY ==
--- NOTE | 2022-08-14 11:05 | MM_ITS ---
WS: [id number] BILATERAL SCREENING DIGITAL TOMOSYNTHESIS MAMMOGRAM WITH CAD HISTORY: SCREENING COMPARISON: 08/08/2021, 05/11/2020 Bilateral CC and MLO views with tomosynthesis and synthetic mammography submitted. Computer aided det ection analyzed. Breast composition: There are scattered areas of fibroglandular density. No suspicious masses, microc alcifications or architectural distortion. Benign coarse calcification central LEFT breast. MM/[id number] IMPRESSION: BI-RADS: 2-Benign FOLLOW UP: 1 Year Follow-up
== END 2022-08-14 10:51 | disposition home or self-care (01) ==
LOC: RAD 10:51
PROVIDERS: PCP Internal Medicine; Visit Provider Internal Medicine
DX: Z12.31 Encounter for screening mammogram for malignant neoplasm of breast (principal)
CPT/HCPCS: 77063; 77067

== ENCOUNTER → 2022-11-07 10:26 | Outpatient (BNVA) | payer MEDICARE, OTHER, SELFPAY | PROVIDERS: PCP Internal Medicine; Visit Provider Internal Medicine | DX: R55 Syncope and collapse (principal); I49.1 Atrial premature depolarization; I49.3 Ventricular premature depolarization | CPT/HCPCS: 93225 ==

== ENCOUNTER 2023-02-12 13:55 | Oncology outpatient (recurring) (ONCR) | payer MEDICARE, OTHER, SELFPAY ==
[2023-02-12 15:09] LABS: Basophils # 0.5 10^3/uL (0.0-0.1); Basophils % 3.9 %; Eosinophils # 0.4 10^3/uL (0.0-0.8); Hematocrit 40.7 % (37.0-47.0); Lymphocytes # 2.7 10^3/uL (0.8-4.8); Lymphocytes % 21.7 %; Mean Corpuscular HGB Conc 31.9 g/dL (30.0-36.0); Mean Corpuscular Hemoglobin 31.9 pg (28.0-34.0); Mean Platelet Volume 11.2 fL (7.4-10.4); Monocytes # 1.1 10^3/uL (0.2-0.9); Monocytes % 8.8 %; Neutrophils # 7.34 10^3/uL (1.8-7.7); Neutrophils % 58.9 %; Nucleated Red Blood Cells % 0 %; Platelet Count 786 10^3/cmm (130-400); Red Blood Count 4.07 10^6/uL (4.1-5.3); Red Cell Distribution Width 14.4 % (12.1-15.1); White Blood Count 12.5 10^3/uL (4.0-10.0)
[2023-02-12 15:27] LABS: Alanine Aminotransferase 14 U/L (0-33); Albumin Level 4.6 g/dL (3.5-5.2); Alkaline Phosphatase 60 U/L (35-105); Aspartate Amino Transferase 27 U/L (0-32); Blood Urea Nitrogen 13 mg/dL (8-23); Calcium 9.1 mg/dL (8.5-10.5); Carbon Dioxide 27 mmol/L (22-29); Chloride 105 mmol/L (98-107); Globulin 2.3 g/dL (1.3-4.6); Glucose 102 mg/dL (65-115); Lactate Dehydrogenase 308 U/L (135-214); Osmolality Calculated 296 mOsm/kg (285-295); Sodium 143 mmol/L (136-145); Total Bilirubin 0.3 mg/dL (0.15-1.2); Total Protein 6.9 g/dL (6.6-8.7)
== END 2023-03-02 23:59 | disposition home or self-care (01) ==
PROVIDERS: PCP Internal Medicine; Visit Provider Internal Medicine Medical Oncology
DX: D47.3 Essential (hemorrhagic) thrombocythemia (principal); F41.9 Anxiety disorder, unspecified; Z79.82 Long term (current) use of aspirin; Z79.899 Other long term (current) drug therapy
CPT/HCPCS: 36415; 80053; 83615; 85025; 99214

== ENCOUNTER → 2023-03-25 12:52 | Outpatient (BNVA) | payer MEDICARE, OTHER, SELFPAY | PROVIDERS: PCP Internal Medicine; Visit Provider Dermatology | DX: D16.9 Benign neoplasm of bone and articular cartilage, unspecified (principal); L82.1 Other seborrheic keratosis; L81.4 Other melanin hyperpigmentation | CPT/HCPCS: 99213 ==

== ENCOUNTER 2023-06-24 08:13 | Outpatient (CLI) | payer MEDICARE, OTHER, SELFPAY ==
--- NOTE | 2023-06-24 08:23 | XR_ITS ---
WS: [id number] EXAMINATION: XR chest 2V* [id number] REASON FOR EXAM: CHRONIC COUGH COMPARISON: 12/29/2021 ORDER DATE: 06/24/2023 8:32 AM FINDINGS: There are scattered parenchymal and perihilar granulomatous calcifications. The cardiac and mediastin al outlines are unremarkable. There are no pleural effusions. There is calcific aortic change. Degene rative spine changes are present including approximately 6 degrees of dextroscoliosis in the lower th oracic region extending into the lumbar region. There is also an upper thoracic kyphosis and generali zed osteoporosis IMPRESSION:.: NO ACUTE PULMONARY CHANGE.
== END 2023-06-24 08:14 | disposition home or self-care (01) ==
PROVIDERS: PCP Internal Medicine; Visit Provider Specialist
DX: R05.3 Chronic cough (principal)
CPT/HCPCS: 71046

== ENCOUNTER 2023-07-16 10:49 | Outpatient (CLI) | payer MEDICARE, OTHER, SELFPAY | END 2023-07-16 10:50 | disposition home or self-care (01) | LOC: RT 10:50 | PROVIDERS: PCP Internal Medicine; Visit Provider Specialist | DX: R05.3 Chronic cough (principal) | CPT/HCPCS: 94010; 94726; 94729 ==

== ENCOUNTER 2023-08-22 12:35 | Outpatient (CLI) | payer MEDICARE, OTHER, SELFPAY ==
--- NOTE | 2023-08-22 12:53 | MM_ITS ---
WS: [id number] Bilateral screening 3D tomosynthesis digital mammogram, 08/22/2023 Clinical Data: SCREENING Comparison: 08/14/2022, 08/08/2021, 05/11/2020, 04/13/2019, 04/08/2018, 04/01/2017, 03/25/2016, 03/22/2015, , 02/04/2014, 10/09/2012, 07/30/2011, 07/25/2010, 06/20/2009, 06/07/2008, 06/02/2007, 05/23/2006. Findings: The breast parenchymal pattern shows fibroglandular tissue. No spiculated masses or clustered calcifi cations are seen. There are no secondary signs of carcinoma. Impression: 1. Negative bilateral mammogram unchanged. 2. Recommend annual screening mammograms. MM/[id number] BIRADS: 1-Negative FOLLOW UP: 1 Year Follow-up The CAD decoration checker was used.
== END 2023-08-22 12:36 | disposition home or self-care (01) ==
LOC: RAD 12:35
PROVIDERS: PCP Internal Medicine; Visit Provider Internal Medicine
DX: Z12.31 Encounter for screening mammogram for malignant neoplasm of breast (principal)
CPT/HCPCS: 77063; 77067

== ENCOUNTER 2023-11-25 13:20 | Oncology outpatient (recurring) (ONCR) | payer MEDICARE, OTHER, SELFPAY ==
[2023-11-25 14:36] LABS: Hematocrit 38.8 % (36-47); Mean Corpuscular HGB Conc 32.2 g/dL (30-55); Mean Corpuscular Hemoglobin 33.3 pg (27-33); Mean Corpuscular Volume 103.5 fl (85-98); Mean Platelet Volume 11.6 fL (7.4-10.4); Platelet Count 744 10^3/cmm (157-399); Red Blood Count 3.75 10^6/uL (3.85-5.65); Red Cell Distribution Width 14.9 % (12.1-15.1); White Blood Count 16.64 10^3/uL (3.29-11.43)
[2023-11-25 14:51] LABS: Alanine Aminotransferase 21 U/L (0-33); Albumin Level 4.1 g/dL (3.5-5.2); Alkaline Phosphatase 65 U/L (35-105); Aspartate Amino Transferase 27 U/L (0-32); Blood Urea Nitrogen 17 mg/dL (8-23); Calcium 8.8 mg/dL (8.5-10.5); Carbon Dioxide 28 mmol/L (22-29); Chloride 104 mmol/L (98-107); Globulin 2.7 g/dL (1.3-4.6); Glucose 98 mg/dL (65-115); Lactate Dehydrogenase 337 U/L (135-214); Osmolality Calculated 294 mOsm/kg (285-295); Sodium 141 mmol/L (136-145); Total Bilirubin 0.3 mg/dL (0.15-1.2); Total Protein 6.8 g/dL (6.6-8.7)
[2023-11-25 15:01] LABS: Slide Review Slide Review Perform; Total Cells Counted 100 (0-100)
[2023-11-25 15:06] LABS: Segmented Neutrophils 60 %
[2023-11-25 15:07] LABS: Absolute Eosinophils 0.5 10^3/cmm (0.0-0.7); Absolute Neutrophil 10.3 10^3/cmm (1.4-6.5); Band Neutrophils Absolute 0.3 10^3/cmm (0.0-1.2); Eosinophils 3 %; Giant Platelets 1+; Lymphocytes 18 %; Lymphocytes Absolute 3.5 10^3/cmm (1.2-3.4); Macrocytosis 1+; Monocytes Absolute 1.2 10^3/cmm (0.1-0.6); Platelet Estimate Increased (Normal)
[2023-12-04 18:39] LABS: CALR Exon 9 Mutation DETECTED (NOT DETECTED); JAK2 V617 Block Specimen ID NG; JAK2 V617 Clinical Indication NG; JAK2 V617 Mutation NOT DETECTED (NOT DETECTED); JAK2 V617 Specimen Source NG
== END 2023-12-03 23:59 | disposition home or self-care (01) ==
PROVIDERS: PCP Internal Medicine; Visit Provider Nurse Practitioner Family
DX: D47.3 Essential (hemorrhagic) thrombocythemia (principal); Z79.899 Other long term (current) drug therapy
CPT/HCPCS: 36415; 80053; 81270; 81279; 81339; 81479; 83615; 85007; 85025; 99214

== ENCOUNTER → 2024-03-24 09:11 | Outpatient (BNVA) | payer MEDICARE, OTHER, SELFPAY | PROVIDERS: PCP Internal Medicine; Visit Provider Nurse Practitioner Family | DX: L57.0 Actinic keratosis (principal); L82.1 Other seborrheic keratosis; L81.4 Other melanin hyperpigmentation; D18.01 Hemangioma of skin and subcutaneous tissue; L57.8 Other skin changes due to chronic exposure to nonionizing radiation; I87.2 Venous insufficiency (chronic) (peripheral) | CPT/HCPCS: 17000; 99213 ==

== ENCOUNTER 2024-06-10 08:10 | Outpatient (CLI) | payer MEDICARE, OTHER, SELFPAY ==
--- NOTE | 2024-06-10 08:15 | MR_ITS ---
WS: [id number] MRI HEAD WITH CONTRAST WITH ATTENTION TO THE INTERNAL AUDITORY CANALS TECHNIQUE: Sagittal T1, T2 axial, T2 axial flair, axial susceptibility weighted imaging, axial diffus ion weighted images, and coronal T2 images were obtained. Pre and post T1 axial and post T1 coronal i mages. ADC and FSPGR images. Post gadolinium images with attention to the internal auditory canals. A xial fiesta imaging. CLINICAL INFORMATION: SENSORINEURAL HEARING LOSS,BILATERAL COMPARISON: None. FINDINGS: No evidence of restricted diffusion to suggest acute ischemia. Ventricular system and basal cisterns are patent. Moderate to advanced small vessel changes. Mild parenchymal volume loss. Normal posterior fossa. Normal vascular flow voids at the skull base. No extra-axial fluid collections. Paranasal sinuses and mastoid air cells are well aerated. Normal posterior nasopharynx. No hemosideri n on the susceptibility weighted images. Normal optic chiasm and pituitary infundibulum. Moderate sym metric atrophy temporal lobes and hippocampal formations. Proximal 7th and 8th cranial nerves are normal in appearance. No evidence of enhancing IAC or CP angl e mass. Normal trigeminal nerve root entry zones. MR/MR iac's wo/w con* [id number] IMPRESSION: 1. Proximal 7th and 8th cranial nerves are normal in appearance. No evidence o f enhancing IAC or CP angle mass. 2. Normal trigeminal nerve root entry zones. 3. No other acute findings.
[2024-06-10] MEDS: gadobenate dimeglumine 20 mL vial IV (08:57)
== END 2024-06-10 08:11 | disposition home or self-care (01) ==
LOC: RAD 08:10
PROVIDERS: PCP Internal Medicine; Visit Provider Otolaryngology
DX: H90.3 Sensorineural hearing loss, bilateral (principal)
CPT/HCPCS: 70553; A9577

== ENCOUNTER 2024-06-15 11:58 | Oncology outpatient (recurring) (ONCR) | payer MEDICARE, OTHER, SELFPAY ==
[2024-06-15 12:23] LABS: Hematocrit 40.3 % (36-47); Mean Corpuscular Hemoglobin 33.9 pg (27-33); Mean Corpuscular Volume 105.8 fl (85-98); Mean Platelet Volume 11.7 fL (7.4-10.4); Platelet Count 743 10^3/cmm (157-399); Red Blood Count 3.81 10^6/uL (3.85-5.65); Red Cell Distribution Width 15.3 % (12.1-15.1); White Blood Count 17.36 10^3/uL (3.29-11.43)
[2024-06-15 12:38] LABS: Alanine Aminotransferase 15 U/L (0-33); Albumin Level 4.4 g/dL (3.5-5.2); Alkaline Phosphatase 67 U/L (35-105); Aspartate Amino Transferase 27 U/L (0-32); Blood Urea Nitrogen 11 mg/dL (8-23); Calcium 9.1 mg/dL (8.5-10.5); Carbon Dioxide 27 mmol/L (22-29); Chloride 102 mmol/L (98-107); Globulin 2.8 g/dL (1.3-4.6); Glucose 104 mg/dL (65-115); Osmolality Calculated 290 mOsm/kg (285-295); Sodium 140 mmol/L (136-145); Total Bilirubin 0.3 mg/dL (0.15-1.2); Total Protein 7.2 g/dL (6.6-8.7)
[2024-06-15 12:49] LABS: Absolute Segmented Neutrophil 9.5 10/cmm (1.6-7.1); Segmented Neutrophils 55 %; Slide Review Slide Review Perform; Total Cells Counted 100 (0-100)
[2024-06-15 12:50] LABS: Absolute Neutrophil 10.8 10^3/cmm (1.4-6.5); Anisocytosis 1+; Band Neutrophils Absolute 1.2 10^3/cmm (0.0-1.2); Basophils Absolute 0.7 10^3/cmm (0.0-0.2); Eosinophils 6 %; Giant Platelets 3+; Lymphocytes 13 %; Lymphocytes Absolute 2.4 10^3/cmm (1.2-3.4); Monocytes Absolute 0.9 10^3/cmm (0.1-0.6); Platelet Estimate Increased (Normal); Polychromasia Trace
[2024-06-15 12:51] LABS: Macrocytosis 3+
[2024-06-15 12:57] LABS: Anion Gap 15.3 (5-19); Potassium 4.3 mmol/L (3.5-5.1)
== END 2024-07-03 23:59 | disposition home or self-care (01) ==
PROVIDERS: PCP Internal Medicine; Visit Provider Nurse Practitioner Family
DX: D47.3 Essential (hemorrhagic) thrombocythemia (principal); Z79.82 Long term (current) use of aspirin
CPT/HCPCS: 36415; 80053; 85007; 85025; 99214

== ENCOUNTER 2024-08-26 10:11 | Outpatient (CLI) | payer MEDICARE, OTHER, SELFPAY ==
--- NOTE | 2024-08-26 10:17 | MM_ITS ---
WS: [id number] VIEWS: MLO and CC views both breasts. 3D digital tomosynthesis is also included in this exam. Comparison made with prior exam of 06/07/2008, 04/13/2019, 05/11/2020, 08/11/2021, 08/14/2022, 08/22/2023.. Findings: The breasts are heterogeneously dense, which may obscure small masses. No sign of suspicious mass, tumor calcification or architectural distortion. MM/MM scr BI tomosynthesis [id number] Impression: BI-RADS: 2 - Benign FOLLOW-UP: 1 Year Follow-up This mammogram was also analyzed by the Computer Aided Detection System R2 [employer].
== END 2024-08-26 10:12 | disposition home or self-care (01) ==
LOC: RAD 10:12
PROVIDERS: PCP Internal Medicine; Visit Provider Internal Medicine
DX: Z12.31 Encounter for screening mammogram for malignant neoplasm of breast (principal); R92.333 Mammographic heterogeneous density, bilateral breasts
CPT/HCPCS: 77063; 77067

== ENCOUNTER 2024-12-29 08:43 | Oncology outpatient (recurring) (ONCR) | payer MEDICARE, OTHER, SELFPAY ==
[2024-12-29 09:06] LABS: Mean Corpuscular HGB Conc 31.8 g/dL (30-55); Mean Corpuscular Hemoglobin 33.7 pg (27-33); Mean Platelet Volume 11.7 fL (7.4-10.4); Platelet Count 703 10^3/cmm (157-399); Red Blood Count 3.68 10^6/uL (3.85-5.65); Red Cell Distribution Width 15.6 % (12.1-15.1); White Blood Count 22.18 10^3/uL (3.29-11.43)
[2024-12-29 09:24] LABS: Alanine Aminotransferase 21 U/L (0-33); Albumin Level 4.3 g/dL (3.5-5.2); Alkaline Phosphatase 77 U/L (35-105); Anion Gap 12.9 (5-19); Aspartate Amino Transferase 26 U/L (0-32); Blood Urea Nitrogen 15 mg/dL (8-23); Calcium 9.2 mg/dL (8.5-10.5); Carbon Dioxide 28 mmol/L (22-29); Chloride 104 mmol/L (98-107); Globulin 2.6 g/dL (1.3-4.6); Glucose 124 mg/dL (65-115); Lactate Dehydrogenase 363 U/L (135-214); Osmolality Calculated 294 mOsm/kg (285-295); Potassium 3.9 mmol/L (3.5-5.1); Sodium 141 mmol/L (136-145); Total Bilirubin 0.3 mg/dL (0.15-1.2); Total Protein 6.9 g/dL (6.6-8.7)
[2024-12-29 09:48] LABS: Slide Review Slide Review Perform
[2024-12-29 09:49] LABS: Absolute Eosinophils 0.7 10^3/cmm (0.0-0.7); Absolute Segmented Neutrophil 11.5 10/cmm (1.6-7.1); Band Neutrophils Absolute 2.4 10^3/cmm (0.0-1.2); Eosinophils 3 %; Lymphocytes 17 %; Monocytes Absolute 0.4 10^3/cmm (0.1-0.6); Segmented Neutrophils 52 %; Total Cells Counted 100 (0-100)
[2024-12-29 09:51] LABS: Blastocytes 1 % (0-0)
[2024-12-29 09:54] LABS: Platelet Estimate Increased (Normal)
--- NOTE | 2024-12-29 11:09 | XR_ITS ---
WS: [id number] Chest 2 views, 12/29/2024 Clinical Data: diminished lower lung sounds on right Comparison: None. Findings: No nodules, masses or effusions are seen. The heart is normal. The pulmonary vascularity is not increased. No pneumonia or pneumothorax is seen. The diaphragms are flattened. The aortic arch and descending thoracic aorta show calcification and tortuosity. There is a dextroscoliosis of the thoracic spine. XR/XR chest 2V* [id number] Impression: Atherosclerosis and hyperinflation.
== END 2024-12-31 23:59 | disposition home or self-care (01) ==
PROVIDERS: Nurse Practitioner Family; PCP Internal Medicine; Visit Provider Nurse Practitioner Family
DX: D47.3 Essential (hemorrhagic) thrombocythemia; R06.89 Other abnormalities of breathing; I70.90 Unspecified atherosclerosis; R91.8 Other nonspecific abnormal finding of lung field; Z53.9 Procedure and treatment not carried out, unspecified reason
CPT/HCPCS: 36415; 71046; 80053; 83615; 85007; 85025; 99214

== ENCOUNTER 2025-02-09 12:25 | Oncology outpatient (recurring) (ONCR) | payer MEDICARE, OTHER, SELFPAY ==
[2025-02-09 12:59] LABS: Hematocrit 40.2 % (36-47); Mean Corpuscular HGB Conc 32.3 g/dL (30-55); Mean Corpuscular Volume 105.2 fl (85-98); Mean Platelet Volume 12.1 fL (7.4-10.4); Platelet Count 798 10^3/cmm (157-399); Red Blood Count 3.82 10^6/uL (3.85-5.65); Red Cell Distribution Width 15.8 % (12.1-15.1); White Blood Count 22.14 10^3/uL (3.29-11.43)
[2025-02-09 13:00] LABS: LAB Peripheral Smear Sent for Review
[2025-02-09 13:19] LABS: Slide Review Slide Review Perform
[2025-02-09 13:20] LABS: Total Cells Counted 100 (0-100)
[2025-02-09 13:22] LABS: Alanine Aminotransferase 13 U/L (0-33); Albumin Level 4.6 g/dL (3.5-5.2); Alkaline Phosphatase 75 U/L (35-105); Aspartate Amino Transferase 23 U/L (0-32); Blood Urea Nitrogen 17 mg/dL (8-23); Calcium 9.3 mg/dL (8.5-10.5); Carbon Dioxide 27 mmol/L (22-29); Chloride 100 mmol/L (98-107); Creatinine Clr Calc Pharmacy 46.2232; Glucose 121 mg/dL (65-115); Osmolality Calculated 291 mOsm/kg (285-295); Sodium 139 mmol/L (136-145); Total Bilirubin 0.3 mg/dL (0.15-1.2); Total Protein 7.6 g/dL (6.6-8.7)
[2025-02-09 13:23] LABS: Absolute Eosinophils 0.2 10^3/cmm (0.0-0.7); Absolute Segmented Neutrophil 13.5 10/cmm (1.6-7.1); Band Neutrophils Absolute 0.9 10^3/cmm (0.0-1.2); Basophils Absolute 1.3 10^3/cmm (0.0-0.2); Eosinophils 1 %; Lymphocytes 13 %; Lymphocytes Absolute 2.9 10^3/cmm (1.2-3.4); Monocytes Absolute 0.7 10^3/cmm (0.1-0.6); Segmented Neutrophils 61 %
[2025-02-09 13:24] LABS: Absolute Neutrophil 14.4 10^3/cmm (1.4-6.5); Giant Platelets 1+; Macrocytosis 1+; Platelet Estimate Increased (Normal)
== END 2025-03-02 23:59 | disposition home or self-care (01) ==
PROVIDERS: Nurse Practitioner Family; PCP Internal Medicine; Visit Provider Internal Medicine
DX: D47.3 Essential (hemorrhagic) thrombocythemia (principal); Z79.899 Other long term (current) drug therapy
CPT/HCPCS: 36415; 80053; 80503; 85007; 85025; 99213

== ENCOUNTER → 2025-03-17 13:18 | Outpatient (BNVA) | payer MEDICARE, OTHER, SELFPAY | PROVIDERS: PCP Internal Medicine; Visit Provider Nurse Practitioner Family | DX: I87.2 Venous insufficiency (chronic) (peripheral) (principal); L82.1 Other seborrheic keratosis; L81.4 Other melanin hyperpigmentation; L57.8 Other skin changes due to chronic exposure to nonionizing radiation; D18.01 Hemangioma of skin and subcutaneous tissue; Z08 Encounter for follow-up examination after completed treatment for malignant neoplasm; Z85.828 Personal history of other malignant neoplasm of skin; L57.0 Actinic keratosis | CPT/HCPCS: 17000; 99213 ==

== ENCOUNTER 2025-04-13 11:27 | Oncology outpatient (recurring) (ONCR) | payer MEDICARE, OTHER, SELFPAY ==
[2025-04-13 12:10] LABS: Hematocrit 38.5 % (36-47); Mean Corpuscular HGB Conc 31.9 g/dL (30-55); Mean Corpuscular Hemoglobin 34.2 pg (27-33); Mean Corpuscular Volume 106.9 fl (85-98); Mean Platelet Volume 11.8 fL (7.4-10.4); Platelet Count 719 10^3/cmm (157-399); Red Cell Distribution Width 15.9 % (12.1-15.1); White Blood Count 22.97 10^3/uL (3.29-11.43)
[2025-04-13 12:21] LABS: Alanine Aminotransferase 21 U/L (0-33); Albumin Level 4.3 g/dL (3.5-5.2); Alkaline Phosphatase 71 U/L (35-105); Aspartate Amino Transferase 30 U/L (0-32); Blood Urea Nitrogen 14 mg/dL (8-23); Calcium 9.4 mg/dL (8.5-10.5); Carbon Dioxide 27 mmol/L (22-29); Chloride 97 mmol/L (98-107); Globulin 2.9 g/dL (1.3-4.6); Glucose 102 mg/dL (65-115); Osmolality Calculated 279 mOsm/kg (285-295); Sodium 134 mmol/L (136-145); Total Bilirubin 0.3 mg/dL (0.15-1.2); Total Protein 7.2 g/dL (6.6-8.7)
[2025-04-13 12:26] LABS: Anion Gap 14.3 (5-19); Lactate Dehydrogenase 401 U/L (135-214); Potassium 4.3 mmol/L (3.5-5.1)
[2025-04-13 12:49] LABS: Slide Review Slide Review Perform
[2025-04-13 12:50] LABS: Absolute Eosinophils 1.4 10^3/cmm (0.0-0.7); Absolute Neutrophil 12.6 10^3/cmm (1.4-6.5); Absolute Segmented Neutrophil 11.3 10/cmm (1.6-7.1); Anisocytosis Trace; Band Neutrophils Absolute 1.4 10^3/cmm (0.0-1.2); Basophils Absolute 1.4 10^3/cmm (0.0-0.2); Eosinophils 6 %; Giant Platelets Trace; Lymphocytes 15 %; Lymphocytes Absolute 3.4 10^3/cmm (1.2-3.4); Macrocytosis 2+; Monocytes Absolute 1.6 10^3/cmm (0.1-0.6); Platelet Estimate Increased (Normal); Segmented Neutrophils 49 %; Total Cells Counted 100 (0-100)
[2025-04-13 14:07] LABS: Thyroid Stimulating Hormone 6.96 uIU/mL (0.27-4.20)
[2025-04-13 14:51] LABS: Vitamin B12 > 2000 pg/mL (232-1245)
[2025-04-13 16:05] LABS: Free T4 Free Thyroxine 1.07 ng/dL (0.82-1.77); T3 Free 2.5 PG/ML (2.0-4.4)
== END 2025-05-02 23:59 | disposition home or self-care (01) ==
PROVIDERS: Nurse Practitioner Family; PCP Internal Medicine; Visit Provider Internal Medicine
DX: D47.3 Essential (hemorrhagic) thrombocythemia (principal); Z79.899 Other long term (current) drug therapy; R91.1 Solitary pulmonary nodule; F41.9 Anxiety disorder, unspecified; R79.89 Other specified abnormal findings of blood chemistry; R03.0 Elevated blood-pressure reading, without diagnosis of hypertension
CPT/HCPCS: 80053; 82607; 83615; 84439; 84443; 84481; 85007; 85025; 99214

== ENCOUNTER 2025-08-10 11:19 | Oncology outpatient (recurring) (ONCR) | payer MEDICARE, OTHER, SELFPAY ==
[2025-08-10 11:50] LABS: Hematocrit 38.0 % (36-47); Hemoglobin 12.40 g/dL (11.27-16.99); Mean Corpuscular HGB Conc 32.6 g/dL (30-55); Mean Corpuscular Hemoglobin 34.8 pg (27-33); Mean Corpuscular Volume 106.7 fl (85-98); Platelet Count 713 10^3/cmm (157-399); Red Blood Count 3.56 10^6/uL (3.85-5.65); White Blood Count 20.19 10^3/uL (3.29-11.43)
[2025-08-10 12:08] LABS: Alanine Aminotransferase 17 U/L (0-33); Albumin Level 4.5 g/dL (3.5-5.2); Alkaline Phosphatase 64 U/L (35-105); Anion Gap 14.9 (5-19); Aspartate Amino Transferase 29 U/L (0-32); Blood Urea Nitrogen 13 mg/dL (8-23); Calcium 9.1 mg/dL (8.5-10.5); Carbon Dioxide 27 mmol/L (22-29); Chloride 99 mmol/L (98-107); Globulin 2.5 g/dL (1.3-4.6); Glucose 113 mg/dL (65-115); Osmolality Calculated 285 mOsm/kg (285-295); Potassium 3.9 mmol/L (3.5-5.1); Sodium 137 mmol/L (136-145); Total Protein 7.0 g/dL (6.6-8.7)
[2025-08-10 12:12] LABS: Absolute Segmented Neutrophil 11.9 10/cmm (1.6-7.1); Atypical Lymphs 1.0 % (0-5); Band Neutrophils Absolute 2.6 10^3/cmm (0.0-1.2); Slide Review Slide Review Perform; Total Cells Counted 100 (0-100)
[2025-08-10 12:13] LABS: Giant Platelets 1+; Macrocytosis 1+
[2025-08-10 15:25] LABS: Vitamin B12 > 2000 pg/mL (232-1245)
== END 2025-09-02 23:59 | disposition home or self-care (01) ==
PROVIDERS: Nurse Practitioner Family; PCP Internal Medicine; Visit Provider Internal Medicine
DX: D47.3 Essential (hemorrhagic) thrombocythemia (principal); R03.0 Elevated blood-pressure reading, without diagnosis of hypertension; R71.8 Other abnormality of red blood cells; D75.839 Thrombocytosis, unspecified; Z79.899 Other long term (current) drug therapy
CPT/HCPCS: 36415; 80053; 82607; 82746; 83615; 85007; 85025; 99214